=== PATIENT | female | born 1960 | race Caucasian/White ===

== ENCOUNTER 2017-06-02 19:47 | Emergency (ER) | payer BC ==
[~2017-06-02 19:47] MED LIST: ALPR1 PO; CALC-197 PO; FISH100020 OR; VITA100018 PO
[2017-06-02 20:08] VITALS: BP 183/76; PULSE 80; RESP 14; TEMP 98.4; O2SAT 97
--- NOTE | 2017-06-02 21:13 | RADRPT ---
EXAM DATE/TIME: 06/02/2017 20:30 [place] COMPARISON: No previous studies available for comparison. INDICATIONS : Chest pain. MEDICAL HISTORY : None. SURGICAL HISTORY : None. ENCOUNTER: Initial ACUITY: 1 day PAIN SCORE: 4/10 LOCATION: Bilateral chest FINDINGS: PA and lateral views of the chest demonstrate the lungs to be symmetrically aerated without evidence of mass, infiltrate or effusion. The cardiomediastinal contours are unremarkable. Osseous structure s are intact. CONCLUSION: No acute cardiopulmonary disease. Dinesh Laura MD on June 02, 2017 at 21:11 Board Certified Radiologist. This report was verified electronically.
[2017-06-02 22:12] LABS: AUTOMATED NEUTROPHIL # 4.1 TH/MM3 (1.8-7.7); BASOPHIL # 0.1 TH/MM3 (0-0.2); BASOPHIL % 0.7 % (0.0-2.0); EOSINOPHIL # 0.3 TH/MM3 (0-0.4); EOSINOPHIL % 3.3 % (0.0-4.0); HEMATOCRIT 38.5 % (35.0-46.0); LYMPH % 38.6 % (9.0-44.0); LYMPHOCYTE # 3.3 TH/MM3 (1.0-4.8); MEAN CELL VOLUME 88.7 FL (80.0-100.0); MEAN CORPUSCULAR HGB CONC 33.8 % (32.0-36.0); MEAN PLATELET VOLUME 8.2 FL (7.0-11.0); MONO % 8.7 % (0.0-8.0); MONOCYTE # 0.7 TH/MM3 (0-0.9); NEUT % 48.7 % (16.0-70.0); PLATELET COUNT 266 TH/MM3 (150-450); RED BLOOD COUNT 4.34 MIL/MM3 (4.00-5.30); RED CELL DISTRIBUTION WIDTH 13.2 % (11.6-17.2); WHITE BLOOD COUNT 8.5 TH/MM3 (4.0-11.0)
[2017-06-02 22:41] LABS: BICARBONATE 24.3 MEQ/L (21.0-32.0); BLOOD UREA NITROGEN 19 MG/DL (7-18); CALCIUM 8.5 MG/DL (8.5-10.1); CHLORIDE 105 MEQ/L (98-107); CREATININE 0.77 MG/DL (0.50-1.00); GLOMERULAR FILTRATION RATE 77 ML/MIN (>89); GLUCOSE,RANDOM 103 MG/DL (74-106); MAGNESIUM 2.2 MG/DL (1.5-2.5); SODIUM (NA) 139 MEQ/L (136-145)
[2017-06-02 22:46] LABS: TROPONIN I LESS THAN 0.02 NG/ML (0.02-0.05)
--- NOTE | 2017-06-03 12:14 | PD ---
HPI Chief Complaint: Chest Pain Time Seen by Provider: 20:08 Travel History International Travel<30 days: No Contact w/Intl Traveler<30days: No Traveled to known affect area: No History of Present Illness HPI 57-year-old female presents to emergency department for evaluation of a left- sided chest pain that began this morning. It occasionally radiates to her left neck. She has mild shortness of breath with activity throughout the day today. Denies any nausea or vomiting. No diaphoresis. No episodes of lightheaded sensation. No other symptoms reported. Patient has no cardiac history. [facility] Past Medical History Medical History: Denies Significant Hx : 1 Para: 1 Past Surgical History Section: Yes Social History Alcohol Use: Yes (occasional) Tobacco Use: No Substance Use: No Allergies-Medications (Allergen,Severity, Reaction): Coded Allergies: No Known Allergies (Unverified , 04/24/12) Reported Meds & Prescriptions Reported Meds & Active Scripts Active Xanax 1 Mg Tab (Alprazolam) 1 Mg Tab 1 Mg PO TIDPRN Reported Vitamin D (Cholecalciferol) 1,000 Unit Tab 1,000 Unit PO DAILY Fish Oil ([place]-3 Fatty Acids) 1,000 Mg Cap 1,000 Mg OR DAILY Calcium 600+D3 (Calcium Carbonate-Cholecalcife) +D3 Tab 1 Tab PO DAILY Review of Systems Except as stated in HPI: all other systems reviewed are Neg Physical Exam Narrative This is a well-nourished nontoxic-appearing female patient. She is ambulatory and in no acute distress. She has even respirations. Normal heart rate. Abdomen is nondistended. She moves all extremities and speaks to me clearly. Data Data Last Documented VS Vital Signs Date Time Temp Pulse Resp B/P (MAP) Pulse Ox O2 Delivery O2 Flow Rate FiO2 06/02/17 20:08 98.4 80 14 183/76 (111) 97 Orders Orders Electrocardiogram (06/02/17 20:10) Basic Metabolic Panel (Bmp) (06/02/17 20:10) Ckmb (Isoenzyme) Profile (06/02/17 20:10) Complete Blood Count With Diff (06/02/17 20:10) Magnesium (Mg) (06/02/17 20:10) Troponin I (06/02/17 20:10) Lipase (06/02/17 20:10) Chest, Pa & Lat (06/02/17 20:10) Labs Laboratory Tests Test 06/02/17 21:35 White Blood Count 8.5 TH/MM3 Red Blood Count 4.34 MIL/MM3 Hemoglobin 13.0 GM/DL Hematocrit 38.5 % Mean Corpuscular Volume 88.7 FL Mean Corpuscular Hemoglobin 30.0 PG Mean Corpuscular Hemoglobin Concent 33.8 % Red Cell Distribution Width 13.2 % Platelet Count 266 TH/MM3 Mean Platelet Volume 8.2 FL Neutrophils (%) (Auto) 48.7 % Lymphocytes (%) (Auto) 38.6 % Monocytes (%) (Auto) 8.7 % Eosinophils (%) (Auto) 3.3 % Basophils (%) (Auto) 0.7 % Neutrophils # (Auto) 4.1 TH/MM3 Lymphocytes # (Auto) 3.3 TH/MM3 Monocytes # (Auto) 0.7 TH/MM3 Eosinophils # (Auto) 0.3 TH/MM3 Basophils # (Auto) 0.1 TH/MM3 CBC Comment DIFF FINAL Differential Comment Blood Urea Nitrogen 19 MG/DL Creatinine 0.77 MG/DL Random Glucose 103 MG/DL Calcium Level 8.5 MG/DL Magnesium Level 2.2 MG/DL Sodium Level 139 MEQ/L Potassium Level 3.6 MEQ/L Chloride Level 105 MEQ/L Carbon Dioxide Level 24.3 MEQ/L Anion Gap 10 MEQ/L Estimat Glomerular Filtration Rate 77 ML/MIN Total Creatine Kinase 69 U/L Troponin I LESS THAN 0.02 NG/ML Lipase 173 U/L MDM Medical Decision Making Medical Screen Exam Complete: Yes Emergency Medical Condition: Yes Medical Record Reviewed: Yes Differential Diagnosis ACS versus pleuritic pain versus chest wall pain versus anxiety Narrative Course 57-year-old female presents to emergency department for evaluation chest pain. Workup is initiated in triage. Prior to the placement, patient chooses to leave AMA: The risks of leaving against medical advice without further evaluation treatment were discussed with the patient. These risks include cardiac dysfunction, cardiac dysrhythmia, possible heart attack, possible stroke or . The patient indicated understanding of these risks and appeared to have the capacity to make this decision. Diagnosis Primary Impression: Chest pain Patient Instructions: General Instructions Departure Forms: Tests/Procedures Disposition: 07 AGAINST MEDICAL ADVICE Condition: Stable Marti Huff TD Jun 03, 2017 12:14
--- NOTE | 2017-06-03 19:07 | EKG ---
Date Performed: 06/02/2017 Time Performed: 21:11:17 PTAGE: 57 years EKG: Sinus rhythm NORMAL ECG Since the prior tracing, there has been no significant change PREVIOUS TRACING : 04/24/2012 @[id number] DOCTOR: Rishabh Haque Interpretating Date/Time 06/03/2017 19:05:41
== END 2017-06-03 01:30 | disposition left against medical advice (07) ==
LOC: NED 19:47
DX: R07.9 Chest pain, unspecified (principal); Z79.899 Other long term (current) drug therapy; Z53.21 Procedure and treatment not carried out due to patient leaving prior to being seen by health care provider
CPT/HCPCS: 71046; 80048; 82550; 83690; 83735; 84484; 85025; 85610; 85730; 93005